=== PATIENT | female | born 1955 | race African-American/Black ===

== ENCOUNTER 2018-11-20 11:08 | Emergency (ER) | payer MEDICARE, MEDICAID ==
--- NOTE | 2018-11-20 12:09 | ED ---
Lower Extremity - HPI Summary HPI Summary: Pt. is a 63 y.o female who presents to the ER for re-evaluation of injuries to LEs. Pt. states she was attacked by a rabid coyote in [place] last month. Pt. states she sustained right wrist fracture and numerous bit wounds to legs. Pt. states she has finished rabies prophylactic treatment. Pt. states she has been very sedentary secondary to injuries. Pt. currently on Bactrim. Pt. states she just flew up to [place] so her family could help with her rehab. Pt. presents to ER today because she noticed increased edema to LEs and increased pain to right leg. Denies fever, CP, SOB. Sxs are moderate in severity. No current modifying factors. - History of Current Complaint Chief Complaint: EDExtremityLower Stated Complaint: LEG INFECTION Time Seen by Provider: 11/20/18 11:56 Hx Obtained From: Patient Pain Intensity: 10 - Allergies/Home Medications Allergies/Adverse Reactions: Allergies Allergy/AdvReac Type Severity Reaction Status Date / Time No Known Allergies Allergy Verified 11/20/18 11:52 Home Medications: Home Medications Bactrim DS 800/160 TAB* 1 tab PO BID 11/20/18 [History Confirmed 11/20/18] amLODIPine TAB* 10 mg PO DAILY 11/20/18 [History Confirmed 11/20/18] PMH/Surg Hx/FS Hx/Imm Hx Previously Healthy: Yes Infectious Disease History: No Infectious Disease History: Denies: Traveled Outside the US in Last 30 Days - Family History Known Family History: Positive: Non-Contributory - Social History Occupation: Retired Lives: With Family Alcohol Use: None Substance Use Type: Reports: None Smoking Status (MU): Former Smoker Review of Systems Constitutional: Negative Negative: Fever Cardiovascular: Negative Negative: Chest Pain Respiratory: Negative Negative: Shortness Of Breath Positive: Other - lower leg edema. Positive: Other - Healing wounds to legs Neurological: Negative All Other Systems Reviewed And Are Negative: Yes Physical Exam Triage Information Reviewed: Yes Vital Signs On Initial Exam: Initial Vitals Temp Pulse Resp BP Pulse Ox 97.8 F 92 20 256/174 99 11/20/18 11:10 11/20/18 11:10 11/20/18 11:10 11/20/18 11:10 11/20/18 11:10 Vital Signs Reviewed: Yes Appearance: Positive: Well-Appearing - Pt. sitting in chair in NAD. Skin: Positive: Warm, Dry Head/Face: Positive: Normal Head/Face Inspection Eyes: Positive: Normal, EOMI Neck: Positive: Supple Respiratory/Lung Sounds: Positive: Clear to Auscultation, Breath Sounds Present Cardiovascular: Positive: Normal, RRR Musculoskeletal: Positive: Other - Numeorus healing wounds to left posterior leg. Moderate diffuse edema on left and mild LE edmea to right. No overlying erythema or purulent drainage. Cast on left forearm. Neurological: Positive: Normal, CN Intact II-III Psychiatric: Positive: Affect/Mood Appropriate Procedures - Sedation Patient Received Moderate/Deep Sedation with Procedure: No Diagnostics - Vital Signs Vital Signs Temp Pulse Resp BP Pulse Ox 11/20/18 11:10 97.8 F 92 20 256/174 99 - Laboratory Result Diagrams: 11/20/18 13:12 11/20/18 13:12 Lab Statement: Any lab studies that have been ordered have been reviewed, and results considered in the medical decision making process. Lower Extremity Course/Dx - Course Course Of Treatment: Patient presenting for evaluation of worsening edema to her legs. She is afebrile. Blood pressure initially significant elevated in triage, patient had no complaints of headache, chest pain, shortness of breath, dizziness, lightheadedness. Repeat manual blood pressure was 176/94 and 114/78 at discharge. Given increased leg edema and decreased activity/recent flight bilateral venous duplex is ordered to rule out DVT. Basic labs ordered as well. Venous duplex is negative for DVT, reading per radiology. Labs unremarkable including normal WBC and CRP. Results discussed with patient. We' ll have her follow up with the [facility] for recheck within 2-3 days. Advised to continue antibiotic as directed. To continue wound care. Elevate legs. We'll return to the ER symptoms change or worsen. Patient understands and agrees with plan. - Diagnoses Differential Diagnosis/HQI/PQRI: Positive: Cellulitis, DVT, Sprain, Strain Provider Diagnoses: Animal bite wound, Leg edema Discharge ED - Sign-Out/Discharge Documenting (check all that apply): Patient Departure - Discharge Plan Condition: Good Disposition: HOME Patient Education Materials: Acute Wound Care (ED), Leg Edema (ED) Referrals: [facility] [Outside] Additional Instructions: Schedule a close follow up appointment with the [facility] within 2 -3 days for wound check Continue home medications as directed Elevate legs Return to ER if symptoms change or worsen - Billing Disposition and Condition Condition: GOOD Disposition: Home
[2018-11-20 13:23] LABS: ABS Eosinophils 0.1 10^3/ul (0-0.6); ABS Lymphocytes 2.2 10^3/ul (1.0-4.8); ABS Monocytes 0.6 10^3/ul (0-0.8); Eosinophil % 1.9 %; Hematocrit 38 % (35-47); Hemoglobin 12.9 g/dL (12.0-16.0); Lymphocyte % 31.1 %; Mean Corpuscular HGB Conc 34 g/dL (31-36); Mean Corpuscular Hemoglobin 30 pg (27-31); Mean Corpuscular Volume 89 fL (80-97); Mean Platelet Volume 7.3 fL (7.4-10.4); Nucleated Red Blood Cells % 0.1; Platelet Count 254 10^3/uL (150-450); Red Blood Count 4.31 10^6 /uL (3.70-4.87); Red Cell Distribution Width 14 % (10-15); White Blood Count 6.9 10^3/uL (3.5-10.8)
[2018-11-20 13:48] LABS: ALT 24 U/L (7-52); AST 27 U/L (13-39); Albumin 3.9 g/dL (3.2-5.2); Albumin/Globulin Ratio 1.3 (1-3); Alkaline Phosphatase 67 U/L (34-104); Anion Gap 4 mmol/L (2-11); BUN/Creatinine Ratio 18.6 (8-20); Blood Urea Nitrogen 13 mg/dL (6-24); C Reactive Protein < 1.00 mg/L (<8.01); CO2 Carbon Dioxide 32 mmol/L (22-32); Calcium 9.3 mg/dL (8.6-10.3); Chloride 105 mmol/L (101-111); EGFR African American 102.3 (>60); EGFR Non-African American 84.5 (>60); Globulin 2.9 g/dL (2-4); Glucose 96 mg/dL (70-100); INR 0.99 (0.82-1.09); Potassium 3.5 mmol/L (3.5-5.0); Sodium 141 mmol/L (135-145); Total Protein 6.8 g/dL (6.4-8.9)
[2018-11-20 14:23] VITALS: BP 114/78
== END 2018-11-20 14:20 | disposition home or self-care (01) ==
LOC: ED 11:08
DX: S81.852A Open bite, left lower leg, initial encounter (principal); R60.0 Localized edema; W55.81XA Bitten by other mammals, initial encounter; Y92.9 Unspecified place or not applicable; Z79.899 Other long term (current) drug therapy; Z87.891 Personal history of nicotine dependence
CPT/HCPCS: 36415; 80053; 85025; 85610; 85730; 86140; 93970; 99282

== ENCOUNTER 2018-11-25 11:43 | Emergency (ER) | payer MEDICARE, MEDICAID ==
[2018-11-25 11:59] VITALS: BP 140/100
--- OUTSIDE RECORDS SUMMARY | 2018-11-25 12:42 | XMS REPORT | Continuity of Care Document ---
:1955 External Reference #:[id number] Author Name Martha Medina DO (transmitted by agent of provider Mary Alice Weller) Address [address] [place] [id number] Care Team Providers Name Role Phone Martha Medina DO - Hospitalist Care Team Information Senior Engineer Problems Description No Information Available Social History Type Date Description Comments Sex Unknown Tobacco Use Start: Unknown Patient has never smoked Smoking Status Reviewed: 11/24/18 Patient has never smoked Allergies, Adverse Reactions, Alerts Description No Information Available Medications Description No Information Available Immunizations Description No Information Available Vital Signs Date Vital Result Comment 11/24/2018 2:40pm Height 63 inches 5'3" Weight 174.00 lb with shoes Heart Rate 80 /min BP Systolic 113 mmHg Manual LA sitting BP Diastolic 82 mmHg Manual LA sitting Body Temperature 98.2 F O2 % BldC Oximetry 98 % BMI (Body Mass Index) 30.8 kg/m2 Results Description No Information Available Procedures Description No Information Available Medical Devices Description No Information Available Encounters Type Date Location Provider Dx Diagnosis Office Visit 11/24/2018 Anesthesiology Physician Assistant Internal Martha Medina, F43.11 Post-traumatic 2:40p Medicine - Suite DO stress disorder, R acute S62.001A Unsp fracture of navicular bone of right wrist, init Z74.1 Need for assistance with personal care Z13.220 Encounter for screening for lipoid disorders Z13.1 Encounter for screening for diabetes mellitus Assessments Date Code Description Provider 11/24/2018 F43.11 Post-traumatic stress disorder, acute Martha Medina DO 11/24/2018 S62.001A Unspecified fracture of navicular [scaphoid] Martha Medina DO bone of right wrist, initial encounter for closed fracture 11/24/2018 Z74.1 Need for assistance with personal care Martha Medina DO 11/24/2018 Z13.220 Encounter for screening for lipoid disorders Martha Medina, 11/24/2018 Z13.1 Encounter for screening for diabetes mellitus Martha Medina DO Plan of Treatment Future Appointment(s):12/25/2018 2:20 pm - Martha Medina DO at [facility] Internal Medicine - [address] - Martha Medina, DOF43.11 Post-traumatic stress disorder, acuteReferral:[facility], Mental Health/ CounselorFollow up:one [id number] Unspecified fracture of navicular [scaphoid ] bone of right wrist, initial encounter for closed fractureReferral:Trudy Martínez M.D., Surgery,HandZ74.1 Need for assistance with personal careReferral:Visiting Nurse Services [facility]/ Nurse SpecZ13.220 Encounter for screening for lipoid disordersNew Labs:Lipid Profile ( Trig/Chol/HDL), Ordered: 11/24/18Z13.1 Encounter for screening for diabetes mellitusNew Labs:Hemoglobin A1c (Glyco HGB), Ordered: 11/24/18Hepatitis C Antibody, Ordered: 11/24/18HIV 1&2 p24 Screen, Ordered: 11/24/18 Functional Status Description No Information Available Mental Status Description No Information Available Referrals Refer to Reason for Referral Status Appt Date [facility] Created [address] [place] [address] [phone] Trudy Martínez M.D. Created [address] [facility] [address] [phone] Visiting Nurse Services [facility] Created [address] [place] [address] [phone]
== END 2018-11-25 12:55 | disposition home or self-care (01) ==
LOC: ED 11:43
DX: Z46.89 Encounter for fitting and adjustment of other specified devices (principal); I10 Essential (primary) hypertension; S62.101D Fracture of unspecified carpal bone, right wrist, subsequent encounter for fracture with routine healing; X58.XXXD Exposure to other specified factors, subsequent encounter
CPT/HCPCS: 99282

== ENCOUNTER 2018-11-29 10:57 | Emergency (ER) | payer OTHER, MEDICAID ==
[2018-11-29] MEDS ORDERED: Ibuprofen TAB* 600 MG PO ONE (12:03)
--- NOTE | 2018-11-29 13:08 | ED ---
Upper Extremity Pain - HPI Summary HPI Summary: This patient is a 63-year-old female presenting to the ED with the tightness to her right forearm cast. She states the cast was placed approx 6 weeks ago (on oct 15) and the extremities/fingertips have been swollen approx 3 weeks of that time. She is endorsing pain to the dorsum of the wrist without numbness or tingling. She is requesting to have the cast taken off d/t pain and swelling. Denies other symptoms. She is visiting from [place]. - History of Current Complaint Chief Complaint: EDExtremityUpper Stated Complaint: RT WRIST PAIN FROM PREV FX PER PT Time Seen by Provider: 11/29/18 11:29 Hx Obtained From: Patient Mechanism Of Injury: Twisted Onset/Duration: Started Weeks Ago Timing: Constant, Lasting Days Severity Initially: Moderate Severity Currently: Moderate Pain Location: Forearm Character: Aching Aggravating Factor(s): Movement, Lifting, Flexion, Extension Alleviating Factor(s): Rest, Ice Associated Signs & Symptoms: Positive: Swelling - Risk Factors Non-Orthopedic Risk Factor: Negative DVT Risk Factors: Negative Septic Arthritis Risk Factor: Negative - Allergies/Home Medications Allergies/Adverse Reactions: Allergies Allergy/AdvReac Type Severity Reaction Status Date / Time No Known Allergies Allergy Verified 11/25/18 11:59 Home Medications: Home Medications amLODIPine TAB* [Norvasc 5 mg TAB*] 10 mg PO DAILY 11/29/18 [History Confirmed 11/29/18] PMH/Surg Hx/FS Hx/Imm Hx Previously Healthy: Yes Infectious Disease History: No Infectious Disease History: Denies: Traveled Outside the US in Last 30 Days - Family History Known Family History: Positive: Non-Contributory - Social History Occupation: Unemployed Lives: With Family Alcohol Use: None Hx Substance Use: No Substance Use Type: Reports: None Hx Tobacco Use: No Smoking Status (MU): Former Smoker Review of Systems Negative: Fever, Chills, Fatigue, Skin Diaphoresis Negative: Palpitations, Chest Pain Negative: Shortness Of Breath, Cough Positive: Arthralgia - right dorsal wrist pain Skin: Negative Neurological: Negative All Other Systems Reviewed And Are Negative: Yes Physical Exam Triage Information Reviewed: Yes Vital Signs On Initial Exam: Initial Vitals Temp Pulse Resp BP Pulse Ox 97.9 F 84 16 168/105 98 11/29/18 11:03 11/29/18 11:03 10/16/19 11:03 11/29/18 11:03 11/29/18 11:03 Vital Signs Reviewed: Yes Appearance: Positive: Well-Appearing, Well-Nourished Skin: Positive: Warm, Skin Color Reflects Adequate Perfusion Head/Face: Positive: Normal Head/Face Inspection Eyes: Positive: EOMI, AILYN, Conjunctiva Clear Neck: Positive: Supple, No Lymphadenopathy Respiratory/Lung Sounds: Positive: Clear to Auscultation, Breath Sounds Present Cardiovascular: Positive: Pulses are Symmetrical in both Upper and Lower Extremities Musculoskeletal: Positive: Pain @ - dorsal wrist pain and swelling of the fingers Neurological: Positive: Facial Symmetry Psychiatric: Positive: Normal, Affect/Mood Appropriate Procedures - Sedation Patient Received Moderate/Deep Sedation with Procedure: No Diagnostics - Vital Signs Vital Signs Temp Pulse Resp BP Pulse Ox 11/29/18 11:03 97.9 F 84 16 168/105 98 - Laboratory Lab Statement: Any lab studies that have been ordered have been reviewed, and results considered in the medical decision making process. Course/Dx - Course Course Of Treatment: This patient is evaluated for right forearm injury which occurred approximately 6 weeks prior. Cast was placed on October 15 in [place] and patient was told to follow-up an approximate 4 weeks. She has since moved here temporarily so she would have help with her recovery. She has not followed up with an orthopedic physician at this time. Her cast was placed 6 weeks ago and she is endorsing swelling to the fingertips. She is requesting the cast be removed at this time due to swelling. She states 2 weeks ago when she had a follow-up visit, they "hot" the bilateral sides of the cast to it Leverson swelling, however this did not improve her symptoms. On arrival into the ED, there is a significant swelling into the fingertips. Cast was removed. Immediately the swelling dissipated. Pt feeling improved. A volar splint was placed and no swelling occurred. Pt has a f/u with ortho. Offers no other complaints. - Diagnoses Differential Diagnosis/HQI/PQRI: Positive: Fracture (Closed), Strain, Sprain Provider Diagnoses: Distal radial fracture Discharge ED - Sign-Out/Discharge Documenting (check all that apply): Patient Departure - Discharge Plan Condition: Stable Disposition: HOME Referrals: No Primary Care Phys,NOPCP [Primary Care Provider] - Trudy Martínez MD [Medical Doctor] - Additional Instructions: Please follow up with DR. Martínez as scheduled Call to make an appt Keep the splint applied until follow up - Billing Disposition and Condition Condition: STABLE Disposition: Home - Attestation Statements Provider Attestation: I was available for consult. This patient was seen by the RYAN. The patient was not presented to, seen by, or examined by me. Shimon Calero MD
--- NOTE | 2018-11-29 13:21 | ED ---
Upper Extremity Pain - HPI Summary HPI Summary: This patient is a 63-year-old female presenting to the ED with request for forearm xray. Pt had an injury prior to Oct 15 and had cast placed at that time. Was seen here 4 days ago for request for removal of cast as it was too tight. She was told to f/u with Dr. Martínez. She was unable to see Dr. Martínez until she had repeat x-rays completed. She comes in today requesting a right wrist x-ray. She is endorsing pain over the dorsum of the right wrist which is been present since the injury. Symptoms are not been worse or better since the cast placement, however she does endorse a decrease of swelling to the fingertips. - History of Current Complaint Chief Complaint: EDExtremityUpper Stated Complaint: RT WRIST PAIN FROM PREV FX PER PT Time Seen by Provider: 11/29/18 11:29 Hx Obtained From: Patient Mechanism Of Injury: Twisted Onset/Duration: Started Weeks Ago Timing: Constant, Lasting Days Severity Initially: Moderate Severity Currently: Moderate Pain Location: Forearm Character: Aching Aggravating Factor(s): Movement, Lifting, Flexion, Extension Alleviating Factor(s): Rest, Ice Associated Signs & Symptoms: Positive: Swelling - Risk Factors Non-Orthopedic Risk Factor: Negative DVT Risk Factors: Negative Septic Arthritis Risk Factor: Negative - Allergies/Home Medications Allergies/Adverse Reactions: Allergies Allergy/AdvReac Type Severity Reaction Status Date / Time No Known Allergies Allergy Verified 11/25/18 11:59 Home Medications: Home Medications amLODIPine TAB* [Norvasc 5 mg TAB*] 10 mg PO DAILY 11/29/18 [History Confirmed 11/29/18] PMH/Surg Hx/FS Hx/Imm Hx Infectious Disease History: No Infectious Disease History: Denies: Traveled Outside the US in Last 30 Days - Family History Known Family History: Positive: Non-Contributory - Social History Occupation: Unemployed Lives: With Family Alcohol Use: None Hx Substance Use: No Substance Use Type: Reports: None Hx Tobacco Use: No Smoking Status (MU): Former Smoker Review of Systems Negative: Fever, Chills, Fatigue, Skin Diaphoresis Negative: Palpitations, Chest Pain Negative: Shortness Of Breath, Cough Positive: Arthralgia - right dorsal wrist pain Skin: Negative Neurological: Negative All Other Systems Reviewed And Are Negative: Yes Physical Exam Triage Information Reviewed: Yes Vital Signs On Initial Exam: Initial Vitals Temp Pulse Resp BP Pulse Ox 97.9 F 84 16 168/105 98 11/29/18 11:03 11/29/18 11:03 11/29/18 11:03 11/29/18 11:03 11/29/18 11:03 Vital Signs Reviewed: Yes Appearance: Positive: Well-Appearing, Well-Nourished Skin: Positive: Warm, Skin Color Reflects Adequate Perfusion Head/Face: Positive: Normal Head/Face Inspection Eyes: Positive: EOMI, AILYN, Conjunctiva Clear Neck: Positive: Supple, No Lymphadenopathy Respiratory/Lung Sounds: Positive: Clear to Auscultation, Breath Sounds Present Cardiovascular: Positive: Pulses are Symmetrical in both Upper and Lower Extremities Musculoskeletal: Positive: Pain @ - dorsal wrist pain without swelling Neurological: Positive: Facial Symmetry Psychiatric: Positive: Normal, Affect/Mood Appropriate Procedures - Sedation Patient Received Moderate/Deep Sedation with Procedure: No Diagnostics - Vital Signs Vital Signs Temp Pulse Resp BP Pulse Ox 11/29/18 11:03 97.9 F 84 16 168/105 98 - Laboratory Lab Statement: Any lab studies that have been ordered have been reviewed, and results considered in the medical decision making process. Course/Dx - Course Course Of Treatment: During this course of treatment, xrays were obtained of the R wrist. NO significant change. Replaced volar cast. Pt tolerated well. Will f/u with Dr. Martínez. - Diagnoses Differential Diagnosis/HQI/PQRI: Positive: Strain, Sprain Provider Diagnoses: Distal radial fracture Discharge ED - Sign-Out/Discharge Documenting (check all that apply): Patient Departure - Discharge Plan Condition: Stable Disposition: HOME Referrals: No Primary Care Phys,NOPCP [Primary Care Provider] - Trudy Martínez MD [Medical Doctor] - Additional Instructions: Please follow up with DR. Martínez as scheduled Call to make an appt Keep the splint applied until follow up - Billing Disposition and Condition Condition: STABLE Disposition: Home - Attestation Statements Provider Attestation: I was available for consult. This patient was seen by the RYAN. The patient was not presented to, seen by, or examined by me. Shimon Calero MD
[2018-11-29 13:48] VITALS: BP 165/98
== END 2018-11-29 13:20 | disposition home or self-care (01) ==
LOC: ED 10:57
DX: S52.591A Other fractures of lower end of right radius, initial encounter for closed fracture (principal); X58.XXXA Exposure to other specified factors, initial encounter; Y92.9 Unspecified place or not applicable; Z79.899 Other long term (current) drug therapy; Z87.891 Personal history of nicotine dependence; M19.031 Primary osteoarthritis, right wrist
CPT/HCPCS: 99281; A9270-GY